=== PATIENT | male | born 1945 | race Caucasian/White ===

== ENCOUNTER → 2017-09-14 | Outpatient (CLI) | payer MEDICARE, OTHER ==
[2017-09-14 08:32] LABS: Blood Urea Nitrogen 26 mg/dL (9-20)
--- NOTE | 2017-09-14 09:43 | MR ---
EXAMINATION TYPE: MR lumbar spine wo/w con DATE OF EXAM: 09/14/2017 COMPARISON: 10/02/2015 HISTORY: Back pain TECHNIQUE: T1 and T2 axial and sagittal, postcontrast T1 axial and sagittal images of the lumbar spi ne are submitted. Contrast: 10 mL Magnevist FINDINGS: There is no abnormal signal seen within the visualized spinal cord or paraspinal soft tissu es. Vertebral body hemangioma T12 and L1. Simple appearing left renal cyst noted. Nonspecific heterog eneous marrow signal is seen with marrow reconversion or osteophyte p.m. At L1-2 there is no disc herniation or canal stenosis. Hypertrophic change facets. No foraminal encro achment. At L2-3 there is there is ligamentum flavum hypertrophy and hypertrophic change since. Neural foramin a are patent. Very mild encroachment on the left. Mild circumferential disc bulging but no canal sten osis. At L3-4 there is circumferential disc bulging with ligamentum flavum and facet arthropathy. Mild bila teral foraminal encroachment. No Canal stenosis At L4-5 there is grade 1 anterolisthesis stable. Severe facet arthropathy and ligamentum flavum hyper trophy with moderate to severe canal stenosis and bilateral foraminal encroachment. Correlate for pre vious surgery at this level. Signal posteriorly greater on the right may be related to previous scar or granulation. At L5-S1 there is severe degenerative disc disease with right paracentral disc bulging but no canal s tenosis. Neural foramina remain patent. Facet arthropathy noted. Tarlov cyst incidentally noted. IMPRESSION: 1. Stable grade 1 anterolisthesis L4 and L5 with moderate to severe foraminal encroachment bilaterall y and canal stenosis. 2. Multilevel degenerative disc disease and disc bulging as discussed above.
== END | disposition home or self-care (01) ==
LOC: RADMRIMAIN 07:51
PROVIDERS: ATTEND Physician Assistant
DX: M48.061 Spinal stenosis, lumbar region without neurogenic claudication (principal); M43.16 Spondylolisthesis, lumbar region; M51.26 Other intervertebral disc displacement, lumbar region; M51.36 Other intervertebral disc degeneration, lumbar region; M54.16 Radiculopathy, lumbar region
CPT/HCPCS: 82565; 84520; 72158; A9581

== ENCOUNTER 2018-03-21 23:23 | Emergency (ER) | payer MEDICARE, OTHER ==
[2018-03-21 23:30] VITALS: RESP 18
--- NOTE | 2018-03-21 23:55 | ED ---
General Adult HPI - General Chief complaint: Back Pain/Injury Stated complaint: back pain Time Seen by Provider: 03/21/18 23:53 Source: patient, RN notes reviewed, old records reviewed Mode of arrival: ambulatory Limitations: no limitations - History of Present Illness Initial comments: This is a 72-year-old male the ER for evaluation. Patient is ER for evaluation of back pain right says Her pain back pain to his back of her shoulder blades. Patient's pain was significantly sudden onset. Patient's no significant no medical history no injuries noted. 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 Patient is to continue began to have pain in his back and became concerned. Patient comes ER with continued pain in his back to his right shoulder blades - Related Data Home Medications Medication Instructions Recorded Confirmed Atorvastatin [Lipitor] 10 mg PO HS 09/26/03/21/18 Cholecalciferol [Vitamin D3] 1,000 unit PO DAILY 03/21/18 03/21/18 Allergies Allergy/AdvReac Type Severity Reaction Status Date / Time No Known Allergies Allergy Verified 03/21/18 23:37 Review of Systems ROS Statement: Those systems with pertinent positive or pertinent negative responses have been documented in the HPI. ROS Other: All systems not noted in ROS Statement are negative. 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 History of Any Multi-Drug Resistant Organisms: None Reported Past Surgical History: Back Surgery, Hernia Repair Past Anesthesia/Blood Transfusion Reactions: No Reported Reaction Past Psychological History: No Psychological Hx Reported Smoking Status: Former smoker Past Alcohol Use History: Occasional Past Drug Use History: None Reported - Past Family History Mother Family Medical History: No Reported History Father Family Medical History: No Reported History General Exam Limitations: no limitations General appearance: alert, in no apparent distress, anxious Head exam: Present: atraumatic, normocephalic, normal inspection Eye exam: Present: normal appearance, PERRL, EOMI. Absent: scleral icterus, conjunctival injection, periorbital swelling ENT exam: Present: normal exam, mucous membranes moist Neck exam: Present: normal inspection. Absent: tenderness, meningismus, lymphadenopathy Respiratory exam: Present: normal lung sounds bilaterally. Absent: respiratory distress, wheezes, rales, rhonchi, stridor Cardiovascular Exam: Present: regular rate, normal rhythm, normal heart sounds. Absent: systolic murmur, diastolic murmur, rubs, gallop, clicks GI/Abdominal exam: Present: soft, normal bowel sounds. Absent: distended, tenderness, guarding, rebound, rigid Extremities exam: Present: normal inspection, full ROM, normal capillary refill. Absent: tenderness, pedal edema, joint swelling, calf tenderness Back exam: Present: normal inspection Neurological exam: Present: alert, oriented X3, CN II-XII intact Psychiatric exam: Present: normal affect, normal mood Skin exam: Present: warm, dry, intact, normal color. Absent: rash Course Vital Signs 03/21/18 03/22/18 23:27 02:43 Temperature 97.7 F 97.4 F L Pulse Rate 71 69 Respiratory 18 18 Rate Blood Pressure 148/82 139/69 O2 Sat by Pulse 96 99 Oximetry - Reevaluation(s) Reevaluation #1: pt re eval and pain is resolved EKG Findings - EKG Comments: EKG Findings:: EKG shows normal sinus rhythm rate of 64, MS 146, QRS 100, QTC Medical Decision Making - Medical Decision Making 72 male to the ER for evaluation of right scapular and shoulder pain reproducible pain mild tenderness in the right scapular area, no rash noted no distress, no shortness of breath, no chest pain, computed tomography scan EKG and labwork normal - Lab Data Result diagrams: 03/22/18 01:23 03/22/18 01:23 Lab Results 03/22/18 03/22/18 03/22/18 Range/Units 01:23 01:23 01:23 WBC 8.3 (3.8-10.6) k/uL RBC 4.63 (4.30-5.90) m/uL Hgb 13.6 (13.0-17.5) gm/dL Hct 41.5 (39.0-53.0) % MCV 89.7 (80.0-100.0) fL MCH 29.5 (25.0-35.0) pg MCHC 32.9 (31.0-37.0) g/dL RDW 13.5 (11.5-15.5) % Plt Count 165 (150-450) k/uL Neutrophils % 63 % Lymphocytes % 24 % Monocytes % 8 % Eosinophils % 2 % Basophils % 0 % Neutrophils # 5.2 (1.3-7.7) k/uL Lymphocytes # 2.0 (1.0-4.8) k/uL Monocytes # 0.7 (0-1.0) k/uL Eosinophils # 0.2 (0-0.7) k/uL Basophils # 0.0 (0-0.2) k/uL PT (9.0-12.0) sec INR (<1.2) APTT (22.0-30.0) sec D-Dimer (<0.60) mg/L FEU Sodium 136 L (137-145) mmol/L Potassium 4.4 (3.5-5.1) mmol/L Chloride 104 (98-107) mmol/L Carbon Dioxide 26 (22-30) mmol/L Anion Gap 6 mmol/L BUN 20 (9-20) mg/dL Creatinine 0.90 (0.66-1.25) mg/dL Est GFR (CKD-EPI)AfAm >90 (>60 ml/min/1.73 sqM) Est GFR (CKD-EPI)NonAf 84 (>60 ml/min/1.73 sqM) Glucose 106 H (74-99) mg/dL Calcium 9.1 (8.4-10.2) mg/dL Magnesium 2.0 (1.6-2.3) mg/dL Total Bilirubin 0.8 (0.2-1.3) mg/dL AST 22 (17-59) U/L ALT 32 (21-72) U/L Alkaline Phosphatase 62 (38-126) U/L Total Creatine Kinase 64 (55-170) U/L CK-MB (CK-2) 1.4 (0.0-2.4) ng/mL CK-MB (CK-2) Rel Index 2.2 Troponin I <0.012 (0.000-0.034) ng/mL Total Protein 6.3 (6.3-8.2) g/dL Albumin 3.8 (3.5-5.0) g/dL Lipase 24 (23-300) U/L 03/22/18 Range/Units 01:23 WBC (3.8-10.6) k/uL RBC (4.30-5.90) m/uL Hgb (13.0-17.5) gm/dL Hct (39.0-53.0) % MCV (80.0-100.0) fL MCH (25.0-35.0) pg MCHC (31.0-37.0) g/dL RDW (11.5-15.5) % Plt Count (150-450) k/uL Neutrophils % % Lymphocytes % % Monocytes % % Eosinophils % % Basophils % % Neutrophils # (1.3-7.7) k/uL Lymphocytes # (1.0-4.8) k/uL Monocytes # (0-1.0) k/uL Eosinophils # (0-0.7) k/uL Basophils # (0-0.2) k/uL PT 10.0 (9.0-12.0) sec INR 1.0 (<1.2) APTT 25.2 (22.0-30.0) sec D-Dimer 0.45 (<0.60) mg/L FEU Sodium (137-145) mmol/L Potassium (3.5-5.1) mmol/L Chloride (98-107) mmol/L Carbon Dioxide (22-30) mmol/L Anion Gap mmol/L BUN (9-20) mg/dL Creatinine (0.66-1.25) mg/dL Est GFR (CKD-EPI)AfAm (>60 ml/min/1.73 sqM) Est GFR (CKD-EPI)NonAf (>60 ml/min/1.73 sqM) Glucose (74-99) mg/dL Calcium (8.4-10.2) mg/dL Magnesium (1.6-2.3) mg/dL Total Bilirubin (0.2-1.3) mg/dL AST (17-59) U/L ALT (21-72) U/L Alkaline Phosphatase (38-126) U/L Total Creatine Kinase (55-170) U/L CK-MB (CK-2) (0.0-2.4) ng/mL CK-MB (CK-2) Rel Index Troponin I (0.000-0.034) ng/mL Total Protein (6.3-8.2) g/dL Albumin (3.5-5.0) g/dL Lipase (23-300) U/L - Radiology Data Radiology results: report reviewed (CT Angio chest abdomen pelvis negative for acute disease), image reviewed Disposition Clinical Impression: Mechanical back pain, Thoracic back pain Disposition: HOME SELF-CARE Condition: Good Instructions: Acute Low Back Pain (ED) Is patient prescribed a controlled substance at d/c from ED?: No Referrals: Arsalan Jameson DO [Primary Care Provider] - 1-2 days
[2018-03-22] MEDS ORDERED: SODIUM CHLORIDE 0.9% 1,000 ML IV STA (00:33)
[2018-03-22] MEDS ORDERED: ACETAMINOPHEN IV (For NPO) 1,000 MG in EMPTY BAG 1 BAG IVPB STA (00:39)
[2018-03-22] MEDS ORDERED: KETOROLAC 30 MG/ML 1 ML VIAL IVP STA (00:39)
--- NOTE | 2018-03-22 00:41 | CT ---
EXAMINATION TYPE: CT angio chest DATE OF EXAM: 03/22/2018 12:33 AM COMPARISON: None HISTORY: No prior, pain between shoulder blades, R/O PE CT DLP: 1873.70 mGycm Automated exposure control for dose reduction was used. CONTRAST: CTA scan of the thorax is performed with IV Contrast, patient injected with 100 mL of Isovue 370, pul monary embolism protocol. There are 3-D post processed images.. FINDINGS: There is diffuse pulmonary emphysema. There is no mediastinal adenopathy. Thoracic aorta is atheromat ous. There is no evidence of aortic aneurysm or dissection. Heart size is normal. There is no pericardial effusion. There are no filling defects in the pulmonary arteries. There is mild linear density at the posterior lung bases. The bony thorax is intact. IMPRESSION: SCARRING OR SUBSEGMENTAL ATELECTASIS AT THE POSTERIOR LUNG BASES. NO EVIDENCE OF PULMONARY EMBOLISM. PULMONARY EMPHYSEMA.
--- NOTE | 2018-03-22 00:45 | CT ---
EXAMINATION TYPE: CT abdomen pelvis w con DATE OF EXAM: 03/22/2018 COMPARISON: 08/13/2017 HISTORY: Prior A/P wo on synapse, pain between shoulder blades CT DLP: 1873.70 mGycm Automated exposure control for dose reduction was used. TECHNIQUE: Helical acquisition of images was performed from the lung bases through the pelvis. CONTRAST: Performed without Oral Contrast and with IV Contrast, patient injected with 100 mL of Isovue 370. FINDINGS: There is some patchy linear density at the posterior lung bases. There is no pleural effusion. Liver spleen pancreas gallbladder appear normal. Bile ducts are not dilated. There is no adrenal mass. Kidn eys show satisfactory contrast opacification. There is no hydronephrosis. Ureters are not dilated. Th ere is left renal parapelvic cyst. There are small right-sided renal parapelvic cysts. There is no re troperitoneal adenopathy. Abdominal aorta is atheromatous. There are multiple sigmoid diverticula. Th ere is no evidence of diverticulitis. Appendix is not seen. There is no sign of appendicitis. There i s no ascites. There is no sign of free air. There is no evidence of a pelvic mass. Bladder distends s moothly. There is a mild first-degree L4-5 spondylolisthesis. There are clips uprightly from left ing uinal hernia surgery. IMPRESSION: SIGMOID DIVERTICULOSIS WITHOUT DIVERTICULITIS. RENAL PARAPELVIC CYSTS. MILD SUBSEGMENTAL ATELECTASIS AT THE LUNG BASES. THERE IS NO SIGNIFICANT CHANGE COMPARED TO OLD EXAM.
[2018-03-22 01:38] LABS: Basophils % (A) 0 %; Eosinophils # (A) 0.2 k/uL (0-0.7); Eosinophils % (A) 2 %; HCT 41.5 % (39.0-53.0); HGB 13.6 gm/dL (13.0-17.5); Lymphocytes % (A) 24 %; MCH 29.5 pg (25.0-35.0); MCHC 32.9 g/dL (31.0-37.0); MCV 89.7 fL (80.0-100.0); Mean Platelet Volume 7.5; Monocytes # (A) 0.7 k/uL (0-1.0); Monocytes % (A) 8 %; Neutrophils # (A) 5.2 k/uL (1.3-7.7); Neutrophils % (A) 63 %; Platelet Count 165 k/uL (150-450); RBC 4.63 m/uL (4.30-5.90); RDW 13.5 % (11.5-15.5); WBC 8.3 k/uL (3.8-10.6)
[2018-03-22 01:48] LABS: Creatine Kinase 64 U/L (55-170)
[2018-03-22 01:56] LABS: ALT 32 U/L (21-72); AST 22 U/L (17-59); Albumin 3.8 g/dL (3.5-5.0); Alkaline Phosphatase 62 U/L (38-126); Anion Gap 6 mmol/L; Blood Urea Nitrogen 20 mg/dL (9-20); Calcium 9.1 mg/dL (8.4-10.2); Carbon Dioxide 26 mmol/L (22-30); Chloride 104 mmol/L (98-107); Glucose 106 mg/dL (74-99); Lipase 24 U/L (23-300); Potassium 4.4 mmol/L (3.5-5.1); Sodium 136 mmol/L (137-145); Total Bilirubin 0.8 mg/dL (0.2-1.3); Total Protein 6.3 g/dL (6.3-8.2)
[2018-03-22 02:00] LABS: Creatine Kinase MB 1.4 ng/mL (0.0-2.4); Troponin I <0.012 ng/mL (0.000-0.034)
[2018-03-22 02:02] LABS: D-Dimer 0.45 mg/L FEU (<0.60); Partial Thromboplastin Time 25.2 sec (22.0-30.0)
[2018-03-22 02:45] VITALS: BP 139/69; PULSE 69; TEMP 97.4
== END 2018-03-22 02:44 | disposition home or self-care (01) ==
LOC: EC 23:23
DX: M54.6 Pain in thoracic spine (principal); E78.5 Hyperlipidemia, unspecified; Z87.891 Personal history of nicotine dependence; Z79.899 Other long term (current) drug therapy
CPT/HCPCS: 36415; 93005; 85379; 80053; 82550; 82553; 83690; 83735; 84484; 85025; 85610; 85730; 71275; 74177; 99284; 96374; 96375; 96361; J1885; J0131

== ENCOUNTER → 2019-03-14 | Outpatient (CLI) | payer MEDICARE, OTHER ==
--- NOTE | 2019-03-14 15:43 | CT ---
EXAMINATION TYPE: CT lumbar spine wo con DATE OF EXAM: 03/14/2019 3:12 PM COMPARISON: MR lumbar spine dated 09/14/2017 HISTORY: low back pain X 2-3 months, no injury. lumbar sx 06-17-19 CT DLP: 971 mGycm Automated exposure control for dose reduction was used. TECHNIQUE: Unenhanced CT of the lumbar spine was performed. Bone and soft tissue window settings are submitted as well as coronal and sagittal reconstructions. FINDINGS: There is grade 1 anterolisthesis of L4 on L5 that is been surgically fixated with pedicular screws and fixation rods traversing the L4-S1 vertebral bodies. Anterior osteophytes are seen within the thoracolumbar junction and of the lumbar spine. Multilevel facet arthropathy is also present. Fluid attenuated probable exophytic renal cyst on the left measures approximately 1.8 cm. Numerous si gmoid diverticula are partially visualized. Extensive atherosclerosis of the abdominal aorta and its branches are also partially visualized. No acute fracture of the lumbar spine is seen. Vertebral body heights of the lumbar spine are maintained. There is surgical absence of the posterior elements of L 4-S1. No scoliosis is appreciated. There is a vertebral body hemangioma of L1. L1-L2: Minimal facet arthropathy. No significant disc disease, spinal canal stenosis nor neural kaylan inal narrowing. L2-L3: There is a broad-based disc bulge, facet arthropathy, and ligamentum flavum buckling that appe ars to create mild spinal canal stenosis and mild bilateral neural foraminal narrowing. L3-L4: Posterior element resection is seen and therefore no spinal canal stenosis is evident. Facet a rthropathy and broad-based disc bulge contribute to moderate bilateral neural foraminal narrowing. L4-L5: Grade 1 anterolisthesis is surgically fixated. There is nearly nondiagnostic evaluation of the neural foramen given extensive spray artifact from the surgical hardware. Some neural foraminal narr owing is seen although unable to quantify. L5-S1: [place] artifact from the surgical fixation device limits evaluation. Nondiagnostic evaluation o f the neural foramen. No gross evidence of spinal canal stenosis. IMPRESSION: 1. Surgical fixation of the known grade 1 anterolisthesis of L4 on L5. Decompression of the posterior elements from L4 through S1. 2. Mild spinal canal stenosis at L2-L3 from ligamentum flavum buckling, facet arthropathy and a broad -based disc bulge. 3. Mild degenerative disc disease throughout the remainder of the visualized lumbar spine as detailed above.
--- NOTE | 2019-03-14 16:30 | MR ---
EXAMINATION TYPE: MR lumbar spine wo/w con DATE OF EXAM: 03/14/2019 COMPARISON: Lumbar MRI 09/14/2017, CT lumbar spine 03/14/2019 HISTORY: Lumbago with sciatica, right side TECHNIQUE: Multiplanar, multisequence images of the lumbar spine were acquired utilizing [address] gadolinium contrast. L1-L2: Normal disc appearance without desiccation. No herniation, protrusion or disc bulging. No ca nal stenosis is present. Foramina are patent bilaterally. L2-L3: There is mild spinal stenosis. Hypertrophic changes in the facets causes posterior lateral mas s effect on the thecal sac. No significant foraminal encroachment. No disc herniation. L3-L4: Small posterior broad-based disc bulge causes minimal anterior mass effect thecal sac. No sign ificant central stenosis. No foraminal encroachment. L4-L5: Some foraminal encroachment is present due to the listhesis bilaterally. L5-S1: Normal disc appearance without desiccation. No herniation, protrusion or disc bulging. No ca nal stenosis is present. Foramina are patent bilaterally. Anterolisthesis grade 1 L4-5 is again noted, posterior lumbar fusion L4-5 S1 is again seen with poste rior decompression change as previously described, laminectomies at L4-L5. No paraspinal masses are i dentified. Conus medullaris has a normal appearance. Hemangioma present within the T12 and L1 verteb ral bodies again noted. Susceptibility artifact is present due to patient's posterior lumbar sacral h ardware. Probable parapelvic cysts left kidney. There is some enhancement of what is likely granulati on tissue at the surgical site. IMPRESSION: Postop changes, degenerative disc disease, facet arthropathy. There is foraminal encroachment at L4-5 bilaterally due to the listhesis.
== END | disposition home or self-care (01) ==
LOC: RADCTMAIN 14:24
PROVIDERS: ATTEND Orthopaedic Surgery
DX: M48.061 Spinal stenosis, lumbar region without neurogenic claudication (principal); M43.16 Spondylolisthesis, lumbar region; M51.16 Intervertebral disc disorders with radiculopathy, lumbar region; M46.96 Unspecified inflammatory spondylopathy, lumbar region; M24.28 Disorder of ligament, vertebrae; Z98.1 Arthrodesis status
CPT/HCPCS: 72131; 72158; A9585

== ENCOUNTER → 2020-11-19 | Outpatient (CLI) | payer MEDICARE, OTHER ==
--- NOTE | 2020-11-19 18:58 | CT ---
EXAMINATION TYPE: CT abdomen pelvis wo con DATE OF EXAM: 11/19/2020 COMPARISON: 03/22/2018 INDICATION: Abdominal and pelvic pain DLP: 879 mGycm, Automated exposure control for dose reduction was used. CONTRAST: 0 mL of Isovue 300. Study performed with Oral Contrast TECHNIQUE: Axial images were obtained from above the diaphragm to the pubic rami in the axial plane a t 5 mm thick sections. Reconstructed images are reviewed on the computer in the coronal plane. FINDINGS: Limited CT sections are obtained the lung bases. The lung bases are clear. CT ABDOMEN: Liver: Normal Spleen: Normal Pancreas: Atrophic Adrenal glands: The adrenal glands are normal. Gallbladder: Normal Kidneys: No masses are evident. No hydronephrosis is present. There may be peripelvic cysts within the left kidney. No renal stones are identified. Aorta: Vascular calcification is within the aorta. Inferior vena cava: Normal. CT PELVIS: Multiple diverticuli are scattered through the colon predominantly through the sigmoid colon. No godfrey cent inflammatory change to suggest acute diverticulitis is evident. There are loops of bowel which a re incompletely distended or lack oral contrast limiting their evaluation. Appendix: Not identified. No dilated tubular structure or inflammatory change is evident. Urinary bladder: Normal. Genitourinary structures: Prostate is prominent Osseous structures: No suspicious lytic or sclerotic lesions. Degenerative changes at sacroiliac join ts. Postsurgical changes within the lower lumbar spine. IMPRESSIONS: 1. Diverticulosis. No acute diverticulitis is identified. 2. Left renal peripelvic cysts.
== END | disposition home or self-care (01) ==
LOC: RADCTMAIN 13:27
PROVIDERS: ATTEND Family Medicine
DX: N28.1 Cyst of kidney, acquired (principal); K57.90 Diverticulosis of intestine, part unspecified, without perforation or abscess without bleeding
CPT/HCPCS: 74176

== ENCOUNTER 2024-03-22 13:58 | Emergency (ER) | payer MEDICARE, OTHER ==
[2024-03-22 14:21] VITALS: RESP 18
--- NOTE | 2024-03-22 14:23 | ED ---
Extremity Problem HPI - General Source: patient, RN notes reviewed Mode of arrival: ambulatory Limitations: no limitations <Danika Vega - Last Filed: 03/22/24 14:21> - General Source: patient, RN notes reviewed Mode of arrival: ambulatory Limitations: no limitations <Richard Toth - Last Filed: 03/22/24 15:13> - General Chief complaint: Extremity Problem,Nontraumatic Stated complaint: R Wrist Injury Time Seen by Provider: 03/22/24 14:21 - History of Present Illness Initial comments: Quick Note: This is an 78-year-old male who presents to the emergency department for right wrist pain. States that it started 2 days ago. He was fairly active prior to this beginning and believes that he may have irritated or strained the wrist somehow, but otherwise denies any injuries or falls. Not taking anything for pain control. States that his wrist almost feels stiff. (Danika Vega) 78-year-old male presents emerged part with 2 minor right wrist pain right thumb pain. Patient states that he has been very active working on a deck in a fence and states that he had no injuries or falls but states that he has been using it more often. He states that it feels better when he does not move it he has no pain denies any paresthesias other than his chronic issues of his fingers from carpal tunnel. (Richard Toth) - Related Data Home Medications Medication Instructions Recorded Confirmed Atorvastatin [Lipitor] 10 mg PO HS 09/26/15 03/21/18 Cholecalciferol [Vitamin D3] 1,000 unit PO DAILY 03/21/18 03/21/18 Allergies Allergy/AdvReac Type Severity Reaction Status Date / Time No Known Allergies Allergy Verified 03/22/24 14:21 Review of Systems ROS Other: All systems not noted in ROS Statement are negative. <Danika Vega - Last Filed: 03/22/24 14:21> ROS Other: All systems not noted in ROS Statement are negative. <Richard Toth - Last Filed: 03/22/24 15:13> ROS Statement: Those systems with pertinent positive or pertinent negative responses have been documented in the HPI. 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" TO UPPER BACK-AREA REMOVED FROM HOT SHOT History of Any Multi-Drug Resistant Organisms: None Reported Past Surgical History: Back Surgery, Hernia Repair Past Anesthesia/Blood Transfusion Reactions: No Reported Reaction Past Psychological History: No Psychological Hx Reported Smoking Status: Never smoker Past Alcohol Use History: Occasional Past Drug Use History: None Reported - Past Family History Mother Family Medical History: No Reported History Father Family Medical History: No Reported History <Danika Vega - Last Filed: 03/22/24 14:21> General Exam Limitations: no limitations <Danika Vega - Last Filed: 03/22/24 14:21> General appearance: alert, in no apparent distress Head exam: Present: atraumatic, normocephalic, normal inspection Respiratory exam: Present: normal lung sounds bilaterally. Absent: respiratory distress, wheezes, rales, rhonchi, stridor Cardiovascular Exam: Present: regular rate, normal rhythm, normal heart sounds. Absent: systolic murmur, diastolic murmur, rubs, gallop, clicks Extremities exam: Present: other (Right wrist there is discomfort patient, no erythema no increased warmth patient has a positive Scott's test) <Richard Toth - Last Filed: 03/22/24 15:13> - General Exam Comments Initial Comments: Visual Physical Exam Vital signs reviewed General: Well-appearing, nontoxic, no acute distress. Head: Normocephalic, atraumatic Eyes: PERRLA, EOMI ENT: Airway patent Chest: Nonlabored breathing Skin: No visual rash, normal skin tone Neuro: Alert and oriented 3 Musculoskeletal: No gross abnormalities (Danika Vega) Course Vital Signs 03/22/24 14:19 Temperature 98 F Pulse Rate 66 Respiratory 18 Rate Blood Pressure 142/86 O2 Sat by Pulse 98 Oximetry Medical Decision Making <Danika Vega - Last Filed: 03/22/24 14:21> <Richard Toth - Last Filed: 03/22/24 15:13> - Medical Decision Making I performed the QuickNote portion of this chart. Signed Danika Vega PA-C. (Danika Vega) Was pt. sent in by a medical professional or institution ([facility], ASSOCIATE MEDIA DIRECTOR, urgent care, hospital, or assisted...) When possible be specific @ -No Did you speak to anyone other than the patient for history (EMS, parent, family, police, friend...)? What history was obtained from this source @ -No Did you review nursing and triage notes (agree or disagree)? Why? @ -I reviewed and agree with nursing and triage notes Were old charts reviewed (outside hosp., previous admission, EMS record, old EKG, old radiological studies, urgent care reports/EKG's, assisted records)? Report findings @ -No old charts were reviewed Differential Diagnosis (chest pain, altered mental status, abdominal pain women, abdominal pain men, vaginal bleeding, weakness, fever, dyspnea, syncope, headache, dizziness, GI bleed, back pain, seizure, CVA, palpatations, mental health, musculoskeletal)? @ -Wrist tendinitis tenosynovitis, fracture EKG interpreted by me (3pts min.). @ -None X-rays interpreted by me (1pt min.). @ -X-ray wrist shows no acute abnormality CT interpreted by me (1pt min.). @ -None done U/S interpreted by me (1pt. min.). @ -None done What testing was considered but not performed or refused? (CT, X-rays, U/S, labs)? Why? @ -None What meds were considered but not given or refused? Why? @ -None Did you discuss the management of the patient with other professionals (professionals i.e. , PA, ASSOCIATE MEDIA DIRECTOR, lab, RT, psych nurse, social work professor, farmworker vegetable, teacher, fundraising officer, comp field case manager)? Give summary @ -No Was smoking cessation discussed for >3mins.? @ -No Was critical care preformed (if so, how long)? @ -No Were there social determinants of health that impacted care today? How? (Ho melessness, low income, unemployed, alcoholism, drug addiction, transportation, low edu. Level, literacy, decrease access to med. care, prison, rehab)? @ -No Was there de-escalation of care discussed even if they declined (Discuss DNR or withdrawal of care, Hospice)? DNR status @ -No What co-morbidities impacted this encounter? (DM, HTN, Smoking, COPD, CAD, Cancer, CVA, ARF, Chemo, Hep., AIDS, mental health diagnosis, sleep apnea, morbid obesity)? @ -None Was patient admitted / discharged? Hospital course, mention meds given and route, prescriptions, significant lab abnormalities, going to OR and other pertinent info. @ -Discharged the patient has Dequervains tenosynovitis. Patient discharged with thumb flexor splint follow-up with orthopedics. Undiagnosed new problem with uncertain prognosis? @ -No Drug Therapy requiring intensive monitoring for toxicity (Heparin, Nitro, Insulin, Cardizem)? @ -No Were any procedures done? @ -No Diagnosis/symptom? @ -Tenosynovitis Acute, or Chronic, or Acute on Chronic? @ -Acute Uncomplicated (without systemic symptoms) or Complicated (systemic symptoms)? @ -Uncomplicated Side effects of treatment? @ -No Exacerbation, Progression, or Severe Exacerbation? @ -No Poses a threat to life or bodily function? How? (Chest pain, [place], [place], pneumonia, PE, COPD, DKA, ARF, appy, cholecystitis, CVA, Diverticulitis, Homicidal, Suicidal, threat to staff... and all critical care pts) @ -No (Richard Toth) Disposition <Danika Vega - Last Filed: 03/22/24 14:21> Is patient prescribed a controlled substance at d/c from ED?: No <Richard Toth - Last Filed: 03/22/24 15:13> Clinical Impression: Tendinitis, de Quervain's Disposition: HOME SELF-CARE Condition: Stable Instructions (If sedation given, give patient instructions): Tendinitis (ED) Additional Instructions: Please return to the Emergency Department if symptoms worsen or any other concerns. Referrals: Arsalan Jameson DO [Primary Care Provider] - 1-2 days Jay Fields DO [Doctor of Osteopathic Medicine] - 1-2 days
--- NOTE | 2024-03-22 14:41 | XR ---
EXAMINATION TYPE: XR wrist complete RT DATE OF EXAM: 03/22/2024 2:32 PM CLINICAL INDICATION:Male, 78 years old with history of Pain; [facility] COMPARISON: None TECHNIQUE: XR wrist complete RT; examined in the Frontal, navicular, lateral, and oblique. FINDINGS: No acute osseous pathology, joint dislocation, or joint effusion. No evidence of any soft tissue swelling is seen. IMPRESSION: No acute osseous pathology.
[2024-03-22 15:28] VITALS: BP 136/80; PULSE 68; TEMP 97.2
== END 2024-03-22 15:30 | disposition home or self-care (01) ==
LOC: EC 13:58
DX: M65.4 Radial styloid tenosynovitis [de Quervain] (principal)
CPT/HCPCS: 99283

== ENCOUNTER → 2024-08-29 | Outpatient (CLI) | payer MEDICARE, OTHER ==
--- NOTE | 2024-08-29 13:14 | XR ---
EXAMINATION TYPE: XR abdomen 1V DATE OF EXAM: 08/29/2024 11:42 AM COMPARISON: None CLINICAL INDICATION: Male, 79 years old with history of R10.9 UNSPECIFIED ABDOMINAL PAIN, , FINDINGS: Lung bases are clear. No evidence for free intraperitoneal air. Few small air-fluid levels within the small bowel at the left upper quadrant. Edfw-[id number]-[id number] overal l stool burden. No dilated small bowel is seen. Previous posterior lumbar fusion mid to lower lumbar spine with laminectomies and mature lateral osse ous fusion. Coils relating to previous left inguinal hernia repair. IMPRESSION: 1. Nonobstructive bowel gas pattern. No free air. 2. A couple small air-fluid levels involving small bowel in the left upper quadrant could represent a mild regional ileus or enteritis. 3. Mild to moderate stool burden. [facility], Workstation: [facility]ENTERCommercial Mortgage CapitalVERONICA, 08/29/2024 1:11 PM
== END | disposition home or self-care (01) ==
LOC: RADXRMAIN 11:28
PROVIDERS: ATTEND Family Medicine
DX: R10.9 Unspecified abdominal pain (principal); R19.5 Other fecal abnormalities
CPT/HCPCS: 74018

== ENCOUNTER 2025-02-06 10:04 | Day surgery (SDC) | payer MEDICARE, OTHER ==
[2025-02-05 09:52] VITALS: BMI 23.7
[~2025-02-06 10:04] MED LIST: LIDOCAINE 1% (10MG/ML) FOR IV START INTRADERMA PRN
[2025-02-06] MEDS: IV FLUID CONTINUATION 1,000 ML IV ONE (10:29)
[2025-02-06 10:33] VITALS: TEMP 98.4
[2025-02-06] MEDS: LACTATED RINGERS 1,000 ML IV SCH (10:42)
[2025-02-06] MEDS ORDERED: PROPOFOL 10 MG/ML 20 ML VIAL IV ONE (11:28)
[2025-02-06] MEDS ORDERED: LIDOCAINE 2% (PF) 20 MG/ML 5 ML VIAL ONE (11:28)
--- NOTE | 2025-02-06 11:33 | P.GSHP ---
History of Present Illness H&P Date: 02/06/25 Chief Complaint: Gastric ulcer 79-year-old male with recent diagnosis of gastric ulcer while in [place]. No symptoms currently. Was on antiacids. Denies rectal bleeding or melena. 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 x2 Past Anesthesia/Blood Transfusion Reactions: No Reported Reaction Past Psychological History: No Psychological Hx Reported Smoking Status: Never smoker Past Alcohol Use History: Occasional Additional Past Alcohol Use History / Comment(s): QUIT SMOKING 1983, SMOKED APPROX 20 YRS 1PPD Past Drug Use History: None Reported - Past Family History Mother Family Medical History: No Reported History Father Family Medical History: No Reported History Medications and Allergies Home Medications Medication Instructions Recorded Confirmed Type Cholecalciferol [Vitamin D3] 1,000 unit PO DAILY 03/21/18 02/06/25 History Pantoprazole [Protonix] 40 mg PO DAILY 02/05/25 02/06/25 History Allergies Allergy/AdvReac Type Severity Reaction Status Date / Time No Known Allergies Allergy Verified 02/06/25 10:30 Surgical - Exam Vital Signs Temp Pulse Resp BP Pulse Ox 98.4 F 65 16 150/83 95 02/06/25 10:32 02/06/25 10:32 02/06/25 10:32 02/06/25 10:32 02/06/25 10:32 Physical exam: General: Well-developed, well-nourished HEENT: Normocephalic, sclerae nonicteric Abdomen: Nontender, nondistended Extremities: No edema Neuro: Alert and oriented Assessment and Plan (1) Gastric ulcer Narrative/Plan: Will proceed with upper endoscopy Current Visit: Yes Status: Acute Code(s): K25.9 - GASTRIC ULCER, UNSP ACUTE OR CHRONIC, W/O HEMOR OR PERF SNOMED Code(s): 229868876
--- NOTE | 2025-02-06 11:42 | P.PCN ---
Date of Procedure: 02/06/25 Procedure(s) Performed: PREOPERATIVE DIAGNOSIS: History of gastric ulcer POSTOPERATIVE DIAGNOSIS: Duodenitis, gastritis, hiatal hernia PROCEDURE: EGD with Bx Anesthesia: Sedation Endoscopist: Dr. Damico Specimens: Duodenum, antrum Endoscopic Procedure: The patient was on the endoscopy table in the left dec ubitus position. The Olympus gastroscope was inserted into the oropharynx and passed under direct visualization to the region of the third portion of the duodenum. From that point the scope was slowly withdrawn inspecting all surfaces carefully. There was mild inflammation with mucosal edema in the junction between the 1st and 2nd portion of the duodenum. Biopsies were taken. No definite ulceration was seen here. The duodenal bulb proximal to that appeared normal. The pylorus was widely patent. The patient had mild gastritis and a biopsy of the antrum took place. Retroflexion revealed a small 1 cm hiatal hernia. The esophagus appeared normal. The patient was then taken to the recovery room in stable condition per anesthesia guidelines. Recommendations: Continue antiacid therapy. Await biopsy results.
[2025-02-06 12:07] VITALS: RESP 14
[2025-02-06 12:19] VITALS: BP 133/73; PULSE 56
== END 2025-02-06 12:26 | disposition home or self-care (01) ==
LOC: ORWHC2ENDO 10:04
PROVIDERS: ATTEND Surgery
DX: K29.50 Unspecified chronic gastritis without bleeding (principal); K29.80 Duodenitis without bleeding; K31.89 Other diseases of stomach and duodenum; K44.9 Diaphragmatic hernia without obstruction or gangrene; E78.5 Hyperlipidemia, unspecified; J44.9 Chronic obstructive pulmonary disease, unspecified; Z79.899 Other long term (current) drug therapy; Z87.891 Personal history of nicotine dependence; Z87.11 Personal history of peptic ulcer disease
CPT/HCPCS: 88305; 88342; 43239; J2704; J2003